=== PATIENT | female | born 1985 | race Caucasian/White ===

== ENCOUNTER 2018-08-17 16:02 | Outpatient (CLI) | payer OTHER ==
--- NOTE | 2018-08-17 16:34 | ULT ---
Venous duplex sonogram left lower extremity HISTORY: Left leg injury. Pain and edema. FINDINGS: The left common femoral vein and greater saphenous junction were evaluated along with the f emoral, deep femoral, popliteal, and posterior tibial veins. There is good color and spectral Doppler flow, compression, and augmentation. In the area of trauma at the anterior [place], a large well-circumscribed heterogeneous predominantly h ypoechoic fluid collection measures up to 3.6 cm length by 2.7 cm with by 1.6 cm depth. IMPRESSION: No sonographic evidence of DVT within the left lower extremity. Large heterogeneous lesion within the anterior tissues of the upper sylvester may represent a hematoma in the setting of recent trauma.
== END 2018-08-17 16:03 | disposition home or self-care (01) ==
LOC: ULT 16:02
PROVIDERS: ATTEND Orthopaedic Surgery
DX: M25.562 Pain in left knee (principal); M79.662 Pain in left lower leg; M89.9 Disorder of bone, unspecified

== ENCOUNTER 2022-06-19 11:50 | Outpatient (CLI) | payer BC | END 2022-06-19 11:51 | disposition home or self-care (01) | LOC: BICRAD 11:50 | PROVIDERS: ATTEND Nurse Practitioner Family | DX: G25.81 Restless legs syndrome (principal) | CPT/HCPCS: 72120 ==

== ENCOUNTER 2023-06-13 12:27 | Outpatient (CLI) | payer BC | END 2023-06-13 12:28 | disposition home or self-care (01) | LOC: BICRAD 12:27 | PROVIDERS: ATTEND Nurse Practitioner Family | DX: R09.89 Other specified symptoms and signs involving the circulatory and respiratory systems (principal); R05.9 Cough, unspecified | CPT/HCPCS: 71046 ==

== ENCOUNTER 2023-09-22 10:38 | Outpatient (CLI) | payer BC | END 2023-09-22 10:39 | disposition home or self-care (01) | LOC: DTY/OP 10:38 | PROVIDERS: ATTEND Surgery | DX: E66.01 Morbid (severe) obesity due to excess calories (principal) | CPT/HCPCS: 97802 ==